=== PATIENT | male | born 1970 | race Caucasian/White ===

== ENCOUNTER 2024-11-08 09:40 | Outpatient (CLI) | payer BC, SELFPAY ==
--- OUTSIDE RECORDS SUMMARY | 2024-11-08 09:46 | XMS_ITS | Encounter Summary ---
Author Organization [facility] Address [address] [place] [address] Care Team Providers Care Back Tender Paper Machine Name Role Phone Mauro Sarah MD Primary Care Provider Reason for Visit * Reason Onset Date Comments Med Refill 10/10/2024 Encounter Details Date Type Department Care Team (Late st Contact Info) Description 10/10/2024 Refill [facility] [address] [phone] Mauro Sarah MD [address] [place] [address] Social History Tobacco Use Types Packs/Day Years Used Date Smoking Tobacco: Never Smokeless Tobacco: Never Alcohol Use Standard Drinks/Week Comments Yes 0 (1 standard drink = 0.6 oz pur e alcohol) few beers once or twice/month PHQ-2 Answer Date Recorded Retired PHQ-9: Brief Depression Severity Measure Score 0 06/21/2022 PHQ-2 Answer Date Recorded Retired PHQ-9: Brief Depression Severity Measure Score 0 12/11/2023 Sex and Gender Information Value Date Recorded Sex Assigned at Male 07/20/2024 7:51 AM EDT Legal Sex Male 11:53 AM EDT Gender Identity Not on file Sexual Orientation Straight 07/20/2024 7: 51 AM EDT documented as of this encounter Miscellaneous Notes * Telephone Encounter - Mauro Sarah MD - 10/11/2024 12:40 PM EDT I do not prescribe that medicine needs to come from GI * Telephone Encounter - Bessy Joseph LPN - 10/11/2024 9:30 AM EDT Rx Refill Note Requested Prescriptions Pending Prescriptions Disp Refills mesalamine (APRISO) 0.375 g 24 hr capsule Si cap daily Last office visit with prescribing clinician: 07/27/2024 Last telemedicine visit with prescribing clinician: Visit date not found Next office visit with prescribing clinician: 12/28/2024 Would you like a call back once the refill request has been completed: [] Yes [] No If the office needs to give you a call back, can they leave a voicemail: [] Yes [] No Bessy Joseph LPN 10/11/24, 09:31 EDT documented in this encounter Plan of Treatment Upcoming Encounters Date Type Department Care Team (Late st Contact Info) Description 12/28/2024 3:30 PM EDT Office Visit [facility] [address] [phone] Mauro Sarah MD [address] [phone] documented as of this encounter Visit Diagnoses Not on filedocumented in this encounter Care Teams Back Tender Paper Machine Relationship Specialty Start Date End Date Mauro Sarah MD [address] [address] PCP - General Internal Medicine 03/28/16 documented as of this encounter
--- OUTSIDE RECORDS SUMMARY | 2024-11-08 09:46 | XMS_ITS | Clinical Summary ---
Author Organization [employer] ([place], [place], [place], [place]) Address [address] [place] [address] Care Team Providers Care Production Technician Name Role Phone Unavailable Primary Care Provider Unavailabl e Social History Tobacco Use Types Packs/Day Years Used Date Smoking Tobacco: Never Assessed Sex and Gender Information Value Date Recorded Sex Assigned at Male 09/18/2021 10:46 AM CDT Legal Sex Male 10:46 AM CDT Gender Identity Male 09/18/2021 10:46 AM CDT Sexual Orientation Not on file Plan of Treatment Not on file
--- OUTSIDE RECORDS SUMMARY | 2024-11-08 09:46 | XMS_ITS | Clinical Summary ---
Author Organization [facility] Address [address] [place] [address] Care Team Providers Care Terminal System Operator Name Role Phone Jarad Alonso MD Primary Care Provider Allergies Active Allergy Reactions Criticality Noted Date Comments Wound Dressing Adhesive Rash Low 07/27/2018 ALL MASTISOLS- Redness, Blister Other reaction(s): Other (See Comments) OTHER Other reaction(s): Rash/Puss Filled Blisters Medications amphetamine-dex troamphetamine XR (Adderall XR) 20 MG 24 hr capsule Take 2 capsules (40 mg) by mouth 1 (one) time each day. 02/18/2017 Active mesalamine ER (Apriso) 0.375 g 24 hr capsule 4 cap(s) 11/19/2016 Act glen Psyllium (KONSYL PO) Konsyl Daily Fiber (stevia) Active oxybutynin XL (Ditropan-XL) 10 MG 24 hr tablet 04/23/2021 Active Silodosin 8 MG capsule 04/04/2021 Active clobetasol (Temovate) 0.05 % ointment 02/01/2021 Active Probiotic Product (align) 4 MG capsule Align Active Niacinamide-Zn- Wo-Zjerik-Bu-Cr (Nicotinamide) 750-27-2-0.5 MG tablet Take by mouth 1 (one) time each day. 11/19/2016 Active tretinoin (Retin-A) 0.05 % cream 11/07/2021 Active erythromycin (Romycin) 5 MG/GM ophthalmic ointment 1 Application. Active Active Problems Problem Noted Date Diagnosed Date Basal cell adenocarcinoma 07/27/2021 Overview (09/05/2021): Last Assessment & Plan: He had recent excision. Obesity (BMI 35.0-39.9 without comorbidity) 04/25 Gastroesophageal reflux disease without esophagi tis 05/14/2021 Basal cell carcinoma (BCC) of left lower eyelid 04/18/2021 Overview (04/18/2021): Added automatically from request for surgery [id number] Hyperlipidemia LDL goal <100 11/07/2020 Overview (05/23/2021): Last Assessment & Plan: Lipid abnormalities are improving with lifestyle modifications. Nutritional counseling was provided. Lipids will be reassessed in 6 months. Last Assessment & Plan: Lipid abnormalities are improving with lifestyle modifications. Nutritional counseling was provided. Lipids will be reassessed in 6 months. Abdominal bloating 05/15/2020 Overview (05/23/2021): Last Assessment & Plan: Follow with dr Christine and proceed with FODMAP diet Last Assessment & Plan: Follow with dr Christine and proceed with FODMAP diet Vitamin D deficiency 05/15/2020 Overview (05/23/2021): Last Assessment & Plan: On replacement and repeat later this year. Last Assessment & Plan: On replacement and repeat later this year. Enlarged prostate 12/10/2019 Chronic left hip pain 11/12/2019 Overview (05/23/2021): Last Assessment & Plan: Do the exercises and refer back to PT when ready. Last Assessment & Plan: Do the exercises and refer back to PT when ready. Generalized anxiety disorder 10/14/2018 Overview (05/23/2021): Last Assessment & Plan: Psychological condition is improving with treatment. Continue current treatment regimen. Regular aerobic exercise. Psychological condition will be reassessed in 3 months. Last Assessment & Plan: Psychological condition is improving with treatment. Continue current treatment regimen. Regular aerobic exercise. Psychological condition will be reassessed in 3 months. Urinary incontinence, mixed 10/14/2018 Morbid (severe) obesity due to excess calories 0 10/14/2018 Overview (09/05/2021): Last Assessment & Plan: Patient's (Body mass index is 37.45 kg/m .) indicates that they are morbidly obese (BMI > 40 or > 35 with obesity - related health condition) with health conditions that include dyslipidemias . Weight is worsening. BMI is is above average; BMI management plan is completed. We discussed portion control and increasing exercise. 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 Continue current treatment regimen. Regular aerobic exercise. Psychological condition will be reassessed at the next regular appointment.RX for Adderall The patient has read and signed the [facility] Controlled Substance Contract. CARLOS has been reviewed. The patient is aware of the potential for addiction and dependence as well as risks of drug interactions and potential side effects. Patient voices understanding and would like to proceed with medication as prescribed. Last Assessment & Plan: Psychological condition is unchanged. Continue current treatment regimen. Regular aerobic exercise. Psychological condition will be reassessed at the next regular appointment.RX for Adderall The patient has read and signed the [facility] Controlled Substance Contract. CARLOS has been reviewed. The patient is aware of the potential for addiction and dependence as well as risks of drug interactions and potential side effects. Patient voices understanding and would like to proceed with medication as prescribed. Immunizations Immunization Administration Dates Next Due [employer] COVID-19 Vaccine (Purple Cap) 12 + 06/06/2020,05/09/2020 Family History Medical History Relation Name Comments Conversions - Other Brother Panic Di sorder Without Agoraphobia Depression Mother Cancer Mother's Brother Parkinsonism Other Cataracts Paternal Grandmother Retinal detachment Paternal Grandmother Malig Hyperthermia Neg Hx Relation Name Status Comments Brother Mother Mother's Brother Other Paternal Grandmother Social History Tobacco Use Types Packs/Day Years Used Date Smoking Tobacco: Never Smokeless Tobacco: Never Tobacco Cessation:Counseling Given: Not Answered Alcohol Use Standard Drinks/Week Comments Yes 0 (1 standard drink = 0.6 oz pur e alcohol) Socially Sex and Gender Information Value Date Recorded Sex Assigned at Not on file Legal Sex Male 7:52 PM EDT Gender Identity Not on file Sexual Orientation Not on file Last Filed Vital Signs Vital Sign Reading Time Taken Comments Blood Pressure 120/81 12/02/2022 9:50 AM EDT Pulse 66 12/02/2022 9:50 AM EDT Temperature 36.5 C (97.7 F) 12/02/2022 9:50 AM EDT Respiratory Rate 16 12/02/2022 9:50 AM EDT Oxygen Saturation 97% 12/02/2022 9:50 AM EDT Inhaled Oxygen Concentration - - Weight 118 kg (260 lb 12.9 oz) 12/02/2022 7:09 A M EDT Height 180.3 cm (5' 11 ) 12/02/2022 7:09 AM EDT Body Mass Index 36.37 12/02/2022 7:09 AM EDT Plan of Treatment Health Maintenance Due Date Last Done Comments [facility]-Depression Screening 1970 [facility]-HIV Screening 1970 [facility]-Infant/Child/Adol SDOH Screenings 1970 [facility]- SDOH Screenings 1988 [facility]-Adult SDOH Screenings 1988 [facility]-DTaP,Tdap,and Td Vaccines (1 - Tdap) 1989 [facility]-Hepatitis B Vaccines (1 of 3 - 19+ 3-dose series) 1989 [facility]-Pneumococcal Vaccine: 50+ Years (1 of 2 - PCV) 1989 CT Colonography 07/15/2015 Colonoscopy 07/15/2015 FIT-DNA 07/15/2015 FIT 07/15/2015 FOBT 07/15/2015 Sigmoidoscopy 07/15/2015 [facility]-Colorectal Cancer Screening 07/15/2015 [id number] Vaccine ( season) 2023 02/24/2021, 06/06/2020, 05/09/2020 [facility]-Influenza Vaccine (#1) 2024 [facility]-Hepatitis C Screening Completed 11/10/2019 [facility]-Zoster Vaccines Completed 02/28/2021, [facility]-Obesity Intervention Completed 023, 12/11/2022, 11/01/2022, Additional history exists HPV Vaccines Aged Out No longer eligi ble based on patient's age to complete this topic [facility]-HIB Vaccines Aged Out No longer e ligible based on patient's age to complete this topic [facility]-Hepatitis A Vaccines Aged Out No longer eligible based on patient's age to complete this topic [facility]-IPV Vaccines Aged Out No longer e ligible based on patient's age to complete this topic [facility]-Rotavirus Vaccines Aged Out No lo nger eligible based on patient's age to complete this topic Medical Devices Implanted Type Area Testing Consultant Device Identifier Shelf Expiration Date Model / Serial / Lot Harware Right: Leg Hardware Right: Clavicle Insurance [employer] Care Teams Terminal System Operator Relationship Specialty Start Date End Date Jarad Alonso MD [id number] [address] [place] [address] PCP - General 08/04/20
--- OUTSIDE RECORDS SUMMARY | 2024-11-08 09:46 | XMS_ITS | Referral Summary ---
Author Organization [employer] ([place], [place], [place], [place]) Address [address] [place] [address] Care Team Providers Care Motor Transport Inspector Name Role Phone Unavailable Primary Care Provider [...]
--- OUTSIDE RECORDS SUMMARY | 2024-11-08 09:46 | XMS_ITS | Clinical Summary ---
Author Organization 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 500 mg each Active mesalamine (APRISO) 0.375 g 24 hr capsule 4 cap daily 7 Active amphetamine-dextr oamphetamine XR (ADDERALL XR) 20 MG 24 hr capsuleIndication s:ADD (attention deficit disorder) without hyperactivity Take 2 capsules by mouth Every Morning 60 capsule 5 Active amphetamine-dextr oamphetamine XR (ADDERALL XR) 20 MG 24 hr capsuleIndication s:ADD (attention deficit disorder) without hyperactivity Take 2 capsules by mouth Every Morning 60 capsule 5 10/11/19 25 Discontin ued(Reord er) Active Problems Problem Noted Date Diagnosed Date Pancreatic insufficiency 04/04/2023 Assessment & Plan (12/11/2023 4:42 PM EDT): Per Dr Christine Assessment & Plan (04/04/2023 10:53 AM EST): On enzymes and follow with Dr Christine 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 Assessment & Plan (12/13/2022 9:54 AM EDT): added folinic plus for elevated homocysteine Ulcerative colitis 12/05/2022 Assessment & Plan (04/04/2023 10:54 AM EST): Overall good with meds and Dr Christine Assessment & Plan (12/06/2022 12:24 AM EDT): Follow with Dr Christine Basal cell adenocarcinoma 07/27/2021 Assessment & Plan (12/06/2022 12:26 AM EDT): Excised this week from eye lid Assessment & Plan (07/27/2021 10:31 AM EDT): He had recent excision. Hyperlipidemia LDL goal <100 11/07/2020 Assessment & Plan (07/27/2024 12:57 PM EDT): Increase fiber and establish with weight loss Assessment & Plan (04/02/2024 10:43 PM EST): Lipid abnormalities are stable Plan: Add more fiber and reduce processed foods. . Counseled patient on lifestyle modifications to help control hyperlipidemia. Patient Treatment Goals: LDL goal is under 100 Followup in 6 months. Assessment & Plan (07/02/2023 11:01 PM EDT): Lipid abnormalities are stable Plan: Increase fiber and less bad carbs . Counseled patient on lifestyle modifications to help control hyperlipidemia. Patient Treatment Goals: LDL goal is under 100 Followup in 6 months. Assessment & Plan (12/06/2022 12:23 AM EDT): Lipid abnormalities are unchanged. Nutritional counseling was provided. Lipids will be reassessed in 1 year. Assessment & Plan (09/19/2022 9:42 PM EDT): Lipid abnormalities are unchanged. Nutritional counseling was provided. Lipids will be reassessed in 3 months. Assessment & Plan (11/29/2021 8:22 PM EDT): Lipid abnormalities are unchanged. Nutritional counseling was provided. Lipids will be reassessed in 1 year. Assessment & Plan (07/27/2021 10:32 AM EDT): Lipid abnormalities are worsening. Nutritional counseling was provided. Lipids will be reassessed in 3 months. Assessment & Plan (02/28/2021 8:41 PM EST): Lipid abnormalities are improving with lifestyle modifications. Nutritional counseling was provided. Lipids will be reassessed in 6 months. Assessment & Plan (11/14/2020 1:32 PM EDT): Lipid abnormalities are improving with lifestyle modifications. Nutritional counseling was provided. Lipids will be reassessed in 6 months. Vitamin D deficiency 05/15/2020 Assessment & Plan (12/11/2023 2:26 PM EDT): Follow labs. Assessment & Plan (12/06/2022 12:24 AM EDT): Follow labs Assessment & Plan (05/15/2020 8:51 PM EST): On replacement and repeat later this year. Abdominal bloating 05/15/2020 Assessment & Plan (05/15/2020 8:53 PM EST): Follow with dr Christine and proceed with FODMAP diet Chronic left hip pain 11/12/2019 Assessment & Plan (07/02/2023 11:02 PM EDT): See [facility] Assessment & Plan (06/21/2022 5:20 PM EDT): Stable and do exercises Assessment & Plan (05/15/2020 8:51 PM EST): Do the exercises and refer back to PT when ready. Assessment & Plan (11/12/2019 9:05 PM EDT): Proceed with PT and lose weight. Preventative health care 11/11/2018 Assessment & Plan (12/11/2023 4:42 PM EDT): He has had a procedure per Dr Ortega for eye and mood overall ok. We discussed Counseled patient regarding multimodal approach with healthy nutrition, healthy sleep, regular physical activity, social activities, and meditation (4 breath in through nose hold for 7 and out mouth slow count for 8) Get annual derm exams. Age-appropriate Counseling: Discussed preventative medicine issues with patient including regular exercise, healthy diet, stress reduction, adequate sleep and recommended age-appropriate screening studies. Immunizations reviewed. Assessment & Plan (12/06/2022 12:26 AM EDT): He has anxiety with Father's estate issues but mood good overall. He will get labs and follow with Derm with excision of basal cell this week. Age-appropriate Counseling: Discussed preventative medicine issues with patient including regular exercise, healthy diet, stress reduction, adequate sleep and recommended age-appropriate screening studies. Immunizations reviewed. Assessment & Plan (11/29/2021 8:25 PM EDT): He does see Derm and will establish with Dr Bonner for Urology. Age-appropriate Counseling: Discussed preventative medicine issues with patient including regular exercise, healthy diet, stress reduction, adequate sleep and recommended age-appropriate screening studies. Immunizations reviewed. Assessment & Plan (11/14/2020 1:46 PM EDT): His mood and weight are doing better. He will follow with Dr Bonner for Urology. He had recent skin survey with Dr Werner and had exam in past 6 months. Age- appropriate Counseling: Discussed preventative medicine issues with patient including regular exercise, healthy diet, stress reduction, adequate sleep and recommended age-appropriate screening studies. Immunizations reviewed. Assessment & Plan (11/12/2019 9:02 PM EDT): His mood is good overall. His ADD is doing ok with medications. His colitis is ok with medications per Dr Christine. He is following with Dr Danielle and ok with urinary and prostate issues. Age-appropriate Counseling: Discussed preventative medicine issues with patient including regular exercise, healthy diet, stress reduction, adequate sleep and recommended age-appropriate screening studies. Immunizations reviewed. Assessment & Plan (11/11/2018 12:54 AM EDT): I have gone over his labs. He does follow with psych for his ADD and his mood is overall doing ok. Follow with Dermatology. Age-appropriate Counseling: Discussed preventative medicine issues with patient including regular exercise, healthy diet, stress reduction, adequate sleep and recommended age-appropriate screening studies. Immunizations reviewed. Generalized anxiety disorder 10/14/2018 Assessment & Plan (10/14/2023 1:22 PM EDT): Some worsening of mood and anxiety. To consider resuming a SSRI but he wanted to hold for now. Assessment & Plan (08/14/2020 12:17 PM EDT): Psychological condition is improving with treatment. Continue current treatment regimen. Regular aerobic exercise. Psychological condition will be reassessed in 3 months. Urinary incontinence, mixed 10/14/2018 Assessment & Plan (10/14/2023 1:15 PM EDT): He is status post Uroloft Morbid (severe) obesity due to excess calories 0 10/14/2018 Assessment & Plan (07/27/2024 12:58 PM EDT): Patient's (Body mass index is 36.88 kg/m .) indicates that they are morbidly/severely obese (BMI > 40 or > 35 with obesity - related health condition) with health conditions that include impaired fasting glucose, dyslipidemias, GERD, and osteoarthritis . Weight is unchanged. BMI is above average; BMI management plan is completed. We discussed portion control and increasing exercise Refer to [facility] . Assessment & Plan (04/02/2024 10:41 PM EST): Patient's (Body mass index is 37.02 kg/m .) indicates that they are morbidly/severely obese (BMI > 40 or > 35 with obesity - related health condition) with health conditions that include impaired fasting glucose, dyslipidemias, and osteoarthritis . Weight is improving with lifestyle modifications. BMI is above average; BMI management plan is completed. We discussed portion control and increasing exercise. Assessment & Plan (12/11/2023 4:40 PM EDT): Patient's (Body mass index is 37.45 kg/m .) indicates that they are morbidly/severely obese (BMI > 40 or > 35 with obesity - related health condition) with health conditions that include impaired fasting glucose and dyslipidemias . Weight is improving with lifestyle modifications. BMI is above average; BMI management plan is completed. We discussed portion control and increasing exercise. Add protein drink 1 to 2 times a daily and a lean meat and some vegetables daily. Assessment & Plan (07/02/2023 11:03 PM EDT): Patient's (Body mass index is 38.17 kg/m .) indicates that they are morbidly/severely obese (BMI > 40 or > 35 with obesity - related health condition) with health conditions that include dyslipidemias, GERD, and osteoarthritis . Weight is worsening. BMI is above average; BMI management plan is completed. We discussed portion control and increasing exercise. Assessment & Plan (04/04/2023 10:55 AM EST): Patient's (Body mass index is 38.02 kg/m .) indicates that they are morbidly/severely obese (BMI > 40 or > 35 with obesity - related health condition) with health conditions that include dyslipidemias, GERD, and osteoarthritis . Weight is worsening. BMI is above average; BMI management plan is completed. We discussed portion control and increasing exercise. Assessment & Plan (12/06/2022 12:24 AM EDT): Patient's (Body mass index is 37.74 kg/m .) indicates that they are morbidly/severely obese (BMI > 40 or > 35 with obesity - related health condition) with health conditions that include dyslipidemias and osteoarthritis . Weight is unchanged. BMI is above average; BMI management plan is completed. We discussed portion control and increasing exercise. Assessment & Plan (09/19/2022 9:42 PM EDT): Patient's (Body mass index is 37.97 kg/m .) indicates that they are morbidly/severely obese (BMI > 40 or > 35 with obesity - related health condition) with health conditions that include dyslipidemias and osteoarthritis . Weight is unchanged. BMI is above average; BMI management plan is completed. We discussed portion control and increasing exercise. Assessment & Plan (06/21/2022 5:20 PM EDT): Patient's (Body mass index is 37.45 kg/m .) indicates that they are morbidly/severely obese (BMI > 40 or > 35 with obesity - related health condition) with health conditions that include dyslipidemias and osteoarthritis . Weight is unchanged. BMI is above average; BMI management plan is completed. We discussed portion control and increasing exercise. Assessment & Plan (11/29/2021 8:22 PM EDT): Patient's (Body mass index is 37.59 kg/m .) indicates that they are morbidly obese (BMI > 40 or > 35 with obesity - related health condition) with health conditions that include dyslipidemias and osteoarthritis . Weight is worsening. BMI is is above average; BMI management plan is completed. We discussed portion control and increasing exercise. Assessment & Plan (07/27/2021 10:32 AM EDT): Patient's (Body mass index is 37.45 kg/m .) indicates that they are morbidly obese (BMI > 40 or > 35 with obesity - related health condition) with health conditions that include dyslipidemias . Weight is worsening. BMI is is above average; BMI management plan is completed. We discussed portion control and increasing exercise. Assessment & Plan (02/28/2021 9:42 AM EST): Patient's (Body mass index is 34.87 kg/m .) indicates that they are obese (BMI >30) with health conditions that include dyslipidemias and osteoarthritis . Weight is improving with lifestyle modifications. BMI is is above average; BMI management plan is completed. We discussed portion control and increasing exercise. Assessment & Plan (11/14/2020 1:23 PM EDT): Patient's (Body mass index is 34.83 kg/m .) indicates that they are obese (BMI >30) with health conditions that include dyslipidemias . Weight is improving with lifestyle modifications. BMI is is above average; BMI management plan is completed. We discussed portion control and increasing exercise. Assessment & Plan (08/14/2020 12:16 PM EDT): Patient's (Body mass index is 37.23 kg/m .) indicates that they are morbidly obese (BMI > 40 or > 35 with obesity - related health condition) with obesity-related health conditions that include dyslipidemias . Obesity is worsening. BMI is is above average; BMI management plan is completed. We discussed portion control and increasing exercise. Seeing erp pm tomorrow Assessment & Plan (05/15/2020 8:50 PM EST): Patient's (Body mass index is 36.81 kg/m .) indicates that they are obese (BMI >30) with obesity-related health conditions that include hypertension and dyslipidemias . Obesity is worsening. BMI is is above average; BMI management plan is completed. We discussed portion control and increasing exercise. Plan likely refer to [facility] Assessment & Plan (11/12/2019 9:05 PM EDT): Obesity is worsening. Discussed the patient's BMI. The BMI is above average; BMI management plan is completed. General weight loss/lifestyle modification strategies discussed (elicit support from others; identify saboteurs; non-food rewards, etc). Informal exercise measures discussed, e.g. taking stairs instead of elevator. Regular aerobic exercise program discussed.Reduce the evening calories and add psyllium like konsyl or psyllium prior to supper. Assessment & Plan (11/11/2018 12:51 AM EDT): Obesity is worsening. .Recommend enrolling with he and his in [facility]. Goal to consume large amounts of vegetables and fruits,heart healthy fats and low carbohydrate choices. Encourage aerobic exercise of walking, jogging or biking gradually up to 150 minute a week and 2-3 times of weight resistance. Employe behavioral modifications such as daily meditation and stopping eating and drinking calories after 7 pm. History of basal cell carcinoma 10/14/2018 Assessment & Plan (12/11/2023 4:41 PM EDT): Get annual Derm exams. Assessment & Plan (11/29/2021 8:23 PM EDT): Following with Derm ADD (attention deficit disorder) without hyperac tivity 10/14/2018 Assessment & Plan (07/27/2024 12:59 PM EDT): Psychological condition is stable. Continue current treatment regimen. Psychological condition will be reassessed in 3 months. Assessment & Plan (04/02/2024 10:42 PM EST): Psychological condition is stable. Continue current treatment regimen. Psychological condition will be reassessed in 3 months Stable with adderal. . Assessment & Plan (12/11/2023 2:27 PM EDT): Psychological condition is stable. Continue current treatment regimen. Psychological condition will be reassessed in 3 months. Assessment & Plan (10/14/2023 1:16 PM EDT): Stable when meds. Has some trouble with availability of medicine Assessment & Plan (07/02/2023 11:02 PM EDT): Psychological condition is unchanged. Continue current treatment regimen. Psychological condition will be reassessed in 3 months. Assessment & Plan (04/04/2023 10:53 AM EST): Psychological condition is unchanged. Continue current treatment regimen. Psychological condition will be reassessed in 3 months. Assessment & Plan (12/06/2022 12:27 AM EDT): Psychological condition is improving with treatment. Continue current treatment regimen. Regular aerobic exercise. Psychological condition will be reassessed in 3 months.Follow with meds and doing ok Assessment & Plan (09/19/2022 9:44 PM EDT): Psychological condition is unchanged. Continue current treatment regimen. Regular aerobic exercise. Psychological condition will be reassessed at the next regular appointment Use adderral short acting until gets long acting again. . Assessment & Plan (06/21/2022 5:21 PM EDT): Psychological condition is unchanged. Continue current treatment regimen. Regular aerobic exercise. Psychological condition will be reassessed in 3 months RX for Adderall The patient has read and signed the [facility] Substance Contract. CARLOS has been reviewed. The patient is aware of the potential for addiction and dependence as well as risks of drug interactions and potential side effects. Patient voices understanding and would like to proceed with medication as prescribed. . Assessment & Plan (07/27/2021 10:32 AM EDT): Psychological condition is worsening. Continue current treatment regimen. Regular aerobic exercise. Psychological condition will be reassessed in 3 months. Assessment & Plan (02/28/2021 9:44 AM EST): Psychological condition is unchanged. Continue current treatment regimen. Regular aerobic exercise. Psychological condition will be reassessed at the next regular appointment.RX for Adderall The patient has read and signed the [facility] Substance Contract. CARLOS has been reviewed. The patient is aware of the potential for addiction and dependence as well as risks of drug interactions and potential side effects. Patient voices understanding and would like to proceed with medication as prescribed. Assessment & Plan (11/14/2020 1:31 PM EDT): Psychological condition is improving with treatment. Continue current treatment regimen. Psychological condition will be reassessed in 3 months. Assessment & Plan (08/14/2020 11:24 PM EDT): Psychological condition is unchanged. Continue current treatment regimen. Regular aerobic exercise. Psychological condition will be reassessed in 3 months.RX for adderral. The patient has read and signed the [facility] Substance Contract. CARLOS has been reviewed. The patient is aware of the potential for addiction and dependence as well as risks of drug interactions and potential side effects. Patient voices understanding and would like to proceed with medication as prescribed. Encounters Date Type Department Care Team Description [facility] [address] [facility] [address] [place] [address] Mauro Sarah MD ADD (attention deficit disorder) without hyperactivity 10/10/2024 Refill [facility] INTERNAL MEDICINE [address] [facility] [address] [place] [address] Mauro Sarah MD 10/10/2024 Refill [facility] INTER[facility] MED[facility]INE [address] [phone] Monse Wellington MD ADD (attention deficit disorder) without hyperactivity 09/09/2024 Refill [facility] INTER[facility] [address] [place] [phone] Mauro Sarah MD ADD (attention deficit disorder) without hyperactivity 08/09/2024 Refill [facility]INE [address] [phone] Mauro Sarah MD ADD (attention deficit disorder) without hyperactivity from Last 3 Months Immunizations Immunization Administration Dates Next Due COVID-19 (PFIZER) Purple Cap Monovalent 02/25/20,06/06/2020,05/09/2020 Shingrix 02/28/2021,11/14/2020 Family History Medical History Relation Name Comments Alcohol abuse Brother Luis A Heart disease Brother Luis A Coronary disea se and bypass Cancer Father Father Prostate Heart disease Father Father Prostate cancer Father Father Cancer Mother Mother Uterine Uterine cancer Mother Mother Prostate cancer Other Cancer Paternal Grandfather Grandfather Prostat e & Bone Heart disease Paternal Grandfather Grandfather Prostate cancer Paternal Grandfather Grandfather Obesity Paternal Uncle Relation Name Status Comments Brother Luis A Father Father Mother Mother Other maternal (uncle ) Paternal Grandfather Grandfather Paternal Uncle Social History Tobacco Use Types Packs/Day Years [...] Orientation Straight 07/20/2024 7: 51 AM EDT Last Filed Vital Signs Vital Sign Reading Time Taken Comments Blood Pressure 120/78 07/27/2024 9:02 AM EDT Pulse 78 07/27/2024 9:02 AM EDT Temperature 36.7 C (98 F) 07/27/2024 9:02 AM EDT Respiratory Rate 15 04/12/2017 12:10 PM EST Oxygen Saturation 97% 09/19/2022 1:39 PM EDT Inhaled Oxygen Concentration - - Weight 117 kg (257 lb) 07/27/2024 9:02 AM EDT Height 177.8 cm (5' 10 ) 07/27/2024 9:02 AM EDT Body Mass Index 36.88 07/27/2024 9:02 AM EDT Plan of Treatment Upcoming Encounters Date Type Department Care Team (Late st Contact Info) Description 12/28/2024 3:30 PM EDT Office Visit [facility] INTERNAL MEDICINE [address] [phone] Mauro Sarah MD [address] [address] Health Maintenance Due Date Last Done Comments TDAP/TD VACCINES (1 - Tdap) 1989 COLOGUARD 07/15/2015 COLON CANCER SCREENING 5 YEA R SIGMOIDOSCOPY 07/15/2015 CT COLONOGRAPHY 07/15/2015 FECAL OCCULT BLOOD TEST 07/15/2015 FIT Testing (1 year) 07/15/2015 Pneumococcal Vaccine 50+ (1 of 1 - PCV) 2020 COVID-19 Vaccine (4 - 2023-2 5 season) 2023 02/24/2021, 06/06/2020, 05/09/2020 ANNUAL PHYSICAL 12/10/2024 12/11/2023 LIPID PANEL 12/10/2024 12/11/2023, 11/23, 11/28/2021, Additional history exists INFLUENZA VACCINE 12/22/2024 COLONOSCOPY 02/24/2026 02/24/2023, 07/23, 04/26/2016 COLORECTAL CANCER SCREENING 02/24/2026 HEPATITIS C SCREENING Completed 11/10/2019, 020 ZOSTER VACCINE Completed 02/28/2021, 11/14/2020 Procedures Procedure Name Priority Date/Time Associated Diagnosis Comments LIPID PANEL Routine 12/11/2023 8:46 AM EDT Hyperlipidemia LDL goal <100 SCANNED - COLONOSCOPY 02/24/2023 HEPATITIS C ANTIBODY Routine 11/10/2019 10:56 AM EDT Encounter for hepatitis C screening test for low risk patient from Last 3 Months or Most Recently Relevant to Health Maintenance Results * (ABNORMAL) Lipid Panel (12/11/2023 8:46 AM EDT) Total Cholesterol 147 0 - 200 mg/dL 12/11/2023 7:07 PM EDT [facility] Triglycerides 54 0 - 150 mg/dL 12/11/2023 7:07 PM EDT [facility] HDL Cholesterol 36(L) 40 - 60 mg/dL 12/11/2023 7:07 PM EDT [facility] LDL Cholesterol 100 0 - 100 mg/dL 12/11/2023 7:07 PM EDT [facility] VLDL Cholesterol 11 5 - 40 mg/dL 12/11/2023 7:07 PM EDT [facility] LDL/HDL Ratio 2.78 12/11/2023 7:07 PM EDT [facility] Blood Venipuncture / Unknown 12/11/2023 8:46 AM EDT 12/11/2023 8:46 AM EDT [facility] - 12/11/2023 7:07 PM EDT Cholesterol Reference Ranges (U.S. Department of Health and Human Services ATP III Classifications) Desirable <200 mg/dL Borderline High 200-239 mg/dL High Risk >240 mg/dL Triglyceride Reference Ranges (U.S. Department of Health and Human Services ATP III Classifications) Normal <150 mg/dL Borderline High 150-199 mg/dL High 200-499 mg/dL Very High >500 mg/dL HDL Reference Ranges (U.S. Department of Health and Human Services ATP III Classifications) Low <40 mg/dl (major risk factor for CHD) High >60 mg/dl ('negative' risk factor for CHD) LDL Reference Ranges (U.S. Department of Health and Human Services ATP III Classifications) Optimal <100 mg/dL Near Optimal 100-129 mg/dL Borderline High 130-159 mg/dL High 160-189 mg/dL Very High >189 mg/dL us Mauro Sarah MD LAB BLOOD ORDERABLES Final R esult Performing Organization Address [facility] Co de Phone Number [facility]
[address] [place] [address], * SCANNED - COLONOSCOPY (02/24/2023) us Mauro Sarah MD CHART REVIEW TABS Final R esult * Hepatitis C Antibody (11/10/2019 10:56 AM EDT) Hepatitis C Ab Non-Reacti ve Non-Reacti ve 11/10/2019 7:29 PM EDT [facility] Blood Venipuncture / Unknown 11/10/2019 10:56 AM EDT 11/10/2019 10:56 AM EDT Narrative [facility] - 11/10/2019 7:29 PM EDT Results may be falsely decreased if patient taking Biotin. us Mauro Sarah MD LAB BLOOD ORDERABLES Final R esult Performing Organization Address [facility] Co de Phone Number [facility]
[address] [place] [address], from Last 3 Months or Most Recently Relevant to Health Maintenance Insurance [facility] PPO Care Teams Dryer Operator Relationship Specialty Start Date End Date Mauro Sarah MD [address] [facility] [address] [place] [address] PCP - General Internal Medicine 03/28/16
--- OUTSIDE RECORDS SUMMARY | 2024-11-08 09:46 | XMS_ITS | Encounter Summary ---
[facility] [address] [place] [address] Care Team Providers Care Poultry Offal Worker Name Role Phone Mauro Sarah MD Primary Care Provider Reason for Visit * Reason Onset Date Comments Med Refill 11/07/2024 Encounter Details Date Type Department Care Team (Late st Contact Info) Description 11/07/2024 Refill [facility] INTERNAL MEDICINE [address] [phone] Mauro Sarah MD [address] [place] [phone] ADD (attention deficit disorder) without hyperactivity Social History Tobacco Use Types Packs/Day Years [...] encounter Miscellaneous Notes * Telephone Encounter - Lena Cruz MA - 11/08/2024 9:30 AM EDT Rx Refill Note Requested Prescriptions Pending Prescriptions Disp Refills amphetamine-dextroamphetamine XR (ADDERALL XR) 20 MG 24 hr capsule 60 capsule 0 Sig: Take 2 capsules by mouth Every Morning Last office visit with prescribing clinician: 07/27/2024 Last telemedicine visit with prescribing clinician: Visit date not found Next office visit with prescribing clinician: 12/28/2024 Would you like a call back once the refill request has been completed: [] Yes [] No If the office needs to give you a call back, can they leave a voicemail: [] Yes [] No Lena Cruz MA 11/08/24, 09:30 EDT documented in this encounter Plan of Treatment Upcoming Encounters Date Type Department Care Team (Late st Contact Info) Description 12/28/2024 3:30 PM EDT Office Visit [facility] INTERNAL MEDICINE [address] [phone] Mauro Sarah MD [address] [address] documented as of this encounter Visit Diagnoses Diagnosis ADD (attention deficit disorder) without hyperactivity Attention deficit disorder without mention of hyperactivity documented in this encounter Care Teams Poultry Offal Worker Relationship Specialty Start Date End Date Mauro Sarah MD [address] [address] PCP - General Internal Medicine 03/28/16 documented as of this encounter
--- OUTSIDE RECORDS SUMMARY | 2024-11-08 09:46 | XMS_ITS | Encounter Summary ---
[facility] [address] [place] [address] Care Team Providers Care Oracle Iam Consultant Name Role Phone Mauro Sarah MD Primary Care Provider [phone] Reason for Visit * Reason Onset Date Comments Med Refill 09/09/2024 Encounter Details Date Type Department Care Team (Late st Contact Info) Description 09/09/2024 Refill [facility] INTERNAL MEDICINE [address] [phone] Mauro Sarah MD [address] [place] [id number] ADD (attention deficit disorder) without hyperactivity Social [...] encounter Miscellaneous Notes * Telephone Encounter - Bessy Joseph LPN - 09/09/2024 8:19 AM EDT Rx Refill Note Requested Prescriptions Pending Prescriptions Disp Refills amphetamine-dextroamphetamine XR (ADDERALL XR) 20 MG 24 hr capsule 60 capsule 0 Sig: Take 2 capsules by mouth Every Morning Last office visit with prescribing clinician: 07/27/2024 Next office visit with prescribing clinician: 12/28/2024 [place]: 08/10/24 #60 0R Would you like a call back once the refill request has been completed: [] Yes [] No If the office needs to give you a call back, can they leave a voicemail: [] Yes [] No Bessy Joseph LPN 09/09/24, 08:19 EDT documented in this encounter Plan of Treatment Upcoming Encounters Date Type Department Care Team (Late st Contact Info) Description 12/28/2024 3:30 PM EDT Office Visit [facility] INTERNAL MEDICINE [address] [phone] Mauro Sarah MD [address] [address] documented as of this encounter Visit Diagnoses Diagnosis ADD (attention deficit disorder) without hyperactivity Attention deficit disorder without mention of hyperactivity documented in this encounter Care Teams Oracle Iam Consultant Relationship Specialty Start Date End Date Mauro Sarah MD [address] [address] PCP - General Internal Medicine 03/28/16 documented as of this encounter
--- OUTSIDE RECORDS SUMMARY | 2024-11-08 09:46 | XMS_ITS | Encounter Summary ---
[facility] [address] [place] [address] Care Team Providers Care Explosive Operator Bomb Name Role Phone Mauro Sarah MD Primary Care Provider [phone] Reason for Visit * Reason Onset Date Comments Med Refill 10/10/2024 Encounter Details Date Type Department Care Team (Late st Contact Info) Description 10/10/2024 Refill [facility] INTERNAL MEDICINE [address] [phone] Monse Wellington MD [address] [place] [phone] ADD (attention deficit disorder) without hyperactivity Social [...] Encounter - Bessy Joseph LPN - 10/11/2024 8:48 AM EDT Rx Refill Note Requested Prescriptions Pending Prescriptions Disp Refills amphetamine-dextroamphetamine XR (ADDERALL XR) 20 MG 24 hr capsule 60 capsule 0 Sig: Take 2 capsules by mouth Every Morning Last office visit with prescribing clinician: 07/27/24 Next office visit with prescribing clinician: 12/28/24 [place]: 09/09/24 #60 0R Would you like a call back once the refill request has been completed: [] Yes [] No If the office needs to give you a call back, can they leave a voicemail: [] Yes [] No Bessy Joseph LPN 10/11/24, 08:48 EDT documented in this encounter Plan of Treatment Upcoming Encounters Date Type Department Care Team (Late st Contact Info) Description 12/28/2024 3:30 PM EDT Office Visit [facility] INTERNAL MEDICINE [address] [phone] Mauro Sarah MD [address] [address] documented as of this encounter Visit Diagnoses Diagnosis ADD (attention deficit disorder) without hyperactivity Attention deficit disorder without mention of hyperactivity documented in this encounter Care Teams Explosive Operator Bomb Relationship Specialty Start Date End Date Mauro Sarah MD [address] [address] PCP - General Internal Medicine 03/28/16 documented as of this encounter
[2024-11-08 10:20] LABS: Hematocrit 45.6 % (42.0-52.0); Hemoglobin 15.6 g/dL (14.1-18.0); Immature Granulocytes % 0.5 %; Mean Corpuscular HGB Conc 34.2 g/dL (31.8-35.4); Mean Corpuscular Hemoglobin 30.4 pg (27.0-31.2); Mean Corpuscular Volume 88.7 fl (80-94); Nucleated Red Blood Cells % 0 %; Platelet Count 222 K/mm3 (142-424); Red Blood Count 5.14 M/mm3 (4.60-6.20); Red Cell Distribution Width-SD 44.4 fL; White Blood Count 10.0 K/mm3 (4.8-10.8)
[2024-11-08 10:38] LABS: Albumin Level 4.4 g/dl (3.5-5.0); Chloride 102 mmol/L (98-107); Potassium 4.2 mmoL/L (3.5-5.1); Sodium 136 mmol/L (136-145)
[2024-11-08 10:41] LABS: Alanine Aminotransferase 28 U/L (12-78); Albumin/Globulin Ratio 1.5 (1.1-1.8); Alkaline Phosphatase 88 U/L (38-126); Anion Gap 10.2 mEq/L (5-15); Aspartate Amino Transferase 32 U/L (17-59); Bilirubin,Total 1.8 mg/dl (0.2-1.3); Blood Urea Nitrogen 17 mg/dl (9-20); Calcium 9.3 mg/dl (8.4-10.2); Carbon Dioxide 28 mmol/L (22.0-30.0); Creatinine,Serum 0.90 mg/dl (0.66-1.25); Estimated Glomerular Filt Rate 88 ml/min (>60); GFR (African American) 106 ML/MIN (>60); Globulin 3.0 g/dL (1.3-3.2); Glucose 111 mg/dl (74-100); Iron 140 ug/dL (49-181); Total Protein,Serum 7.4 g/dl (6.3-8.2)
[2024-11-08 10:48] LABS: C-Reactive Protein 3.2 mg/L (0-4)
[2024-11-08 10:51] LABS: Total Iron Binding Capacity 282 ug/dL (261-462)
[2024-11-08 11:18] LABS: Ferritin 65.1 ng/ml (17.9-464)
[2024-11-08 16:28] LABS: 25-OH Vitamin D, Total 34.0 ng/mL (30-100)
[2024-11-08 21:24] LABS: Vitamin B12 610 pg/mL (239-931)
== END 2024-11-08 23:59 | disposition home or self-care (01) ==
LOC: LAB 09:41
PROVIDERS: PCP Internal Medicine; Visit Provider Nurse Practitioner Family
DX: K51.90 Ulcerative colitis, unspecified, without complications (principal); E55.9 Vitamin D deficiency, unspecified
CPT/HCPCS: 36415; 80053; 82306; 82607; 82728; 83540; 83550; 85025; 85651; 86140